=== PATIENT | male | born 1990 | race Two or more races ===

== ENCOUNTER 2018-12-07 18:45 | Emergency (ER) | payer MEDICAID ==
[~2018-12-07] VITALS: Ht 175.3 cm; Wt 100.0 kg
[2018-12-08 02:52] VITALS: BP 124/74
== END 2018-12-08 03:27 | disposition home or self-care (01) ==
LOC: ER 18:45
DX: L02.416 Cutaneous abscess of left lower limb (principal); L03.116 Cellulitis of left lower limb; J45.909 Unspecified asthma, uncomplicated; R56.9 Unspecified convulsions
CPT/HCPCS: 10060; 99283; Z7610

== ENCOUNTER 2019-03-20 02:48 | Emergency (ER) | payer MEDICAID ==
[~2019-03-20] VITALS: Ht 182.9 cm; Wt 84.0 kg
[2019-03-20 03:42] VITALS: BP 158/87
== END 2019-03-20 04:36 | disposition left against medical advice (07) ==
LOC: EDBD 02:48 → EDUNIT# 02:48 → ER 02:48
DX: R11.0 Nausea (principal); Z53.21 Procedure and treatment not carried out due to patient leaving prior to being seen by health care provider

== ENCOUNTER 2019-03-20 05:37 | Emergency (ER) | payer MEDICAID ==
[~2019-03-20] VITALS: Ht 182.9 cm; Wt 73.0 kg
[2019-03-20 05:53] VITALS: BP 165/103
== END 2019-03-20 10:57 | disposition left against medical advice (07) ==
LOC: ER 05:37
DX: A64 Unspecified sexually transmitted disease (principal); Z53.21 Procedure and treatment not carried out due to patient leaving prior to being seen by health care provider